=== PATIENT | male | born 1970 | race Asian ===

== ENCOUNTER 2016-08-12 14:39 | Emergency (ER) | payer MEDICAID ==
[~2016-08-12] VITALS: Ht 157.5 cm; Wt 52.2 kg
[~2016-08-12 14:39] MED LIST: TORADOL60 MG/2 ML IM
[2016-08-12 15:12] VITALS: BP 121/83
[2016-08-12 15:13] LABS: APPEARANCE,URINE CLOUDY; KETONES,URINE NEGATIVE (NEGATIVE); LEUKOCYTE ESTERASE ,URINE 3+ (NEGATIVE); NITRITE,URINE POSITIVE (NEGATIVE); PH,URINE 6 (4.5-8.0); PROTEIN,URINE 3+ (NEGATIVE); UROBILINOGEN,URINE 4 MG/DL (0.0-1.0)
[2016-08-12 15:21] LABS: WBC,URINE 40-60 /HPF (0 - 2)
[2016-08-12 15:22] LABS: BACTERIA,URINE MODERATE /HPF; SQUAMOUS EPITHELIAL CELL,UR FEW /LPF (NONE/OCC)
[2016-08-12 15:25] LABS: ICTOTEST NEGATIVE
--- NOTE | 2016-08-12 15:37 | Diagnostic Imaging Report ---
Indication: Dyspnea Comparison: None A single view chest radiograph was obtained. Findings: Cardiomediastinal appearance is within normal limits for age. Pulmonary vascularity is appropriate. The diaphragmatic contour is smooth and costophrenic angles are sharp. No pleural effusions are identified. The bones are unremarkable. Impression: No acute findings
[2016-08-12] MEDS ORDERED: ACETAMINOPHEN-1 EAC1 ORAL (15:51)
[2016-08-12] MEDS ORDERED: KEFLEX500 MG ORAL (15:51)
[2016-08-12] MEDS ORDERED: Lidocaine 1% MPF 10mg/ml 5ml ONE (15:53)
[2016-08-12 16:02] VITALS: BP 126/62
--- NOTE | 2016-08-12 16:10 | Emergency Room Report ---
History of Present Illness General Chief Complaint: Female Urogenital Problems Source: Patient, EMS Present Illness HPI Patient present with complaints of a clicking sensation in the left upper chest area She feels that when she pushes in that area she feels a clicking sound just below the clavicle Patient also stated that she was having rectal bleeding that was noticed this morning Denies any abdominal pain denies any chest pain or shortness of breath Denies any rash However the patient has had increased urination and states that her urine smells different Please note that the patient physiologically has male genitalia, however with gentle preference as female Reports of vomiting or diarrhea no reports of rash Allergies: Coded Allergies: No Known Allergies (Unverified , 07/04/16) Patient History Past Medical History: see triage record Pertinent Family History: none Reviewed Nursing Documentation: PMH: Agreed, PSxH: Agreed Nursing Documentation-PMH Past Medical History: No History, Except For Hx Cardiac Problems: No - HIV Hx Hypertension: Yes Review of Systems All Other Systems: negative except mentioned in HPI Physical Exam Vital Signs Date Time Temp Pulse Resp B/P Pulse Ox O2 Delivery O2 Flow Rate FiO2 08/12/16 14:35 97.9 114 20 121/83 99 Room Air Sp02 EP Interpretation: reviewed, normal General Appearance: well appearing, no apparent distress Head: normocephalic, atraumatic Eyes: bilateral eye EOMI, bilateral eye PERRL ENT: hearing grossly normal, normal pharynx, TMs + canals normal, uvula midline Neck: full range of motion, supple, no meningismus, no bony tend Respiratory: lungs clear, normal breath sounds, no rhonchi, no respiratory distress, no retraction, no accessory muscle use Cardiovascular #1: normal peripheral pulses, regular rate, rhythm, no edema, no gallop, no JVD, no murmur Gastrointestinal: normal bowel sounds, non tender, soft, no mass, no organomegaly, non-distended, no guarding, no hernia, no pulsatile mass, no rebound Rectal: other - Hemorrhoid are visualized at approximately 3:00 and 9:00, no active bleeding Genitourinary: no CVA tenderness Musculoskeletal: normal inspection Neurologic: oriented x3, responsive, library media specialist III-XII nml as tested, motor strength/ tone normal, sensory intact Psychiatric: mood/affect normal Skin: normal color, no rash, warm/dry, palpation normal Lymphatic: normal inspection, no adenopathy Medical Decision Making Diagnostic Impression: Primary Impression: uti ER Course With the patient's history exam chest x-ray imaging was obtained which was negative at this time Urine sample however does show infectious pathology Patient was given IM injection of Keflex is placed on oral antibiotics Patient's primary physician was paged on 2 different occasions I did not have a response as of yet however the patient states that she will also contact him no signs of any sepsis or bacteremia and the patient is stable for initial conservative outpatient trial Labs Test 08/12/16 15:00 Urine Color Yellow Urine Appearance Cloudy Urine pH 6 (4.5-8.0) Urine Specific Magna 1.005 (1.005-1.035) Urine Protein 3+ (NEGATIVE) Urine Glucose (UA) Negative (NEGATIVE) Urine Ketones Negative (NEGATIVE) Urine Occult Blood 4+ (NEGATIVE) Urine Nitrite Positive (NEGATIVE) Urine Bilirubin 2+ (NEGATIVE) Urine Ictotest Negative Urine Urobilinogen 4 MG/DL (0.0-1.0) Urine Leukocyte Esterase 3+ (NEGATIVE) Urine RBC 5-10 /HPF (0 - 2) Urine WBC 40-60 /HPF (0 - 2) Urine Squamous Epithelial Cells Few /LPF (NONE/OCC) Urine Bacteria Moderate /HPF (NONE) Chest X-Ray Diagnostic Results EP Interpretation: Yes Findings: no consolidation, no effusion, no pneumothorax Number of Views: 1 Last Vital Signs Date Time Temp Pulse Resp B/P Pulse Ox O2 Delivery O2 Flow Rate FiO2 08/12/16 16:02 97.9 76 19 126/62 99 Room Air Status: improved Disposition: HOME, SELF-CARE Condition: Improved Scripts Acetaminophen With Codeine (T#3) (TYLENOL #3 TAB*) Y Tab 1 TAB ORAL Q8H Y for For Pain, #10 TAB Prov: LINDSEY BYNUM D.O. 08/12/16 Cephalexin* (KEFLEX*) 500 Mg Capsule 500 MG ORAL Q6H, #28 CAP 0 Refills Prov: LINDSEY BYNUM D.O. 08/12/16 Referrals: NOT CHOSEN IPA/,REFERRING (PCP) Patient Instructions: Urinary Tract Infection Additional Instructions: Patient is provided with the discharge instructions notified to follow up with primary doctor in the next 2-3 days otherwise return to the er with any worsening symptoms. LINDSEY BYNUM D.O. Aug 12, 2016 16:10
== END 2016-08-12 17:01 | disposition home or self-care (01) ==
LOC: EDBD 14:39 → EMR 14:54 → EDSEX 14:54 → EMR 17:01
DX: N39.0 Urinary tract infection, site not specified (principal); K62.5 Hemorrhage of anus and rectum; R19.7 Diarrhea, unspecified; R11.10 Vomiting, unspecified; I10 Essential (primary) hypertension
CPT/HCPCS: 71010; 81003; 87086; 87181; 96372; 99284; J0696